=== PATIENT | female | born 1970 | race Caucasian/White ===

== ENCOUNTER 2019-07-08 14:49 | Emergency (ER) | payer BC ==
[~2019-07-08] VITALS: Ht 165.1 cm; Wt 71.1 kg
[2019-07-08 14:49] VITALS: BP 126/64
--- NOTE | 2019-07-08 15:13 | PHYS DOC ---
Past History Past Medical History: Cancer, Depression, Hypothyroid Past Surgical History: Cancer Surgery, Other Additional Past Surgical Histo: thyroidectomy Smoking: Cigarettes Alcohol Use: Occasionally Drug Use: None Adult General Chief Complaint Chief Complaint: HAND PROBLEM HPI HPI Patient is a 48-year-old female presents with a right hand injury. She states she fell and landed on her hand at work. She states the top of her hand is swollen and she's having trouble flexing her fingers. She denies any other injuries. She states the pain currently as a 9 out of 10 made worse with any movement.[] Review of Systems Review of Systems Constitutional: Denies fever or chills [] Eyes: Denies change in visual acuity, redness, or eye pain [] HENT: Denies nasal congestion or sore throat [] Respiratory: Denies cough or shortness of breath [] Cardiovascular: No additional information not addressed in HPI [] GI: Denies abdominal pain, nausea, vomiting, bloody stools or diarrhea [] : Denies dysuria or hematuria [] Musculoskeletal: Per history of present illness[] Integument: Denies rash or skin lesions [] Neurologic: Denies headache, focal weakness or sensory changes [] Endocrine: Denies polyuria or polydipsia [] All other systems were reviewed and found to be within normal limits, except as documented in this note. Allergies Allergies Allergies Coded Allergies Type Severity Reaction Last Updated Verified No Known Drug Allergies 06/02/14 No Physical Exam Physical Exam Constitutional: Well developed, well nourished, no acute distress, non-toxic ap pearance. [] HENT: Normocephalic, atraumatic, bilateral external ears normal, oropharynx moist, no oral exudates, nose normal. [] Eyes: PERRLA, EOMI, conjunctiva normal, no discharge. [] Neck: Normal range of motion, no tenderness, supple, no stridor. [] Cardiovascular:Heart rate regular rhythm, no murmur [] Lungs & Thorax: Bilateral breath sounds clear to auscultation [] Abdomen: Bowel sounds normal, soft, no tenderness, no masses, no pulsatile masses. [] Skin: Warm, dry, no erythema, no rash. [] Back: No tenderness, no CVA tenderness. [] Extremities: No tenderness, no cyanosis, no clubbing, ROM intact, no edema. [] Neurologic: Alert and oriented X 3, normal motor function, normal sensory function, no focal deficits noted. [] Psychologic: Affect normal, judgement normal, mood normal. [] Current Patient Data Vital Signs Vital Signs Date Time Temp Pulse Resp B/P (MAP) Pulse Ox O2 Delivery O2 Flow Rate FiO2 07/08/19 14:49 98.1 72 16 98 Room Air EKG EKG [] Radiology/Procedures Radiology/Procedures [] Course & Med Decision Making Course & Med Decision Making Pertinent Labs and Imaging studies reviewed. (See chart for details) [Right hand x-ray: Negative exam as interpreted by me] Dragon Disclaimer Dragon Disclaimer This electronic medical record was generated, in whole or in part, using a voice recognition dictation system. Departure Departure: Impression: Primary Impression: Contusion of right hand Disposition: 01 HOME/RESIDENCE PRIOR TO ADM Condition: STABLE Referrals: BRI STATON (PCP) Patient Instructions: Hand Contusion Scripts Naproxen (NAPROXEN) 500 Mg Tablet.dr 1 TAB PO Q12HR PRN for PAIN, #20 TAB 1 Refill Prov: MIRNA CORREA DO 07/08/19 Problem Qualifiers Primary Impression: Contusion of right hand Encounter type: initial encounter Qualified Codes: S60.221A - Contusion of right hand, initial encounter MIRNA CORREA DO Jul 08, 2019 15:13
[2019-07-08] MEDS ORDERED: NAPROXEN 500 MG TABLET PO ONE (15:15)
[2019-07-08] MEDS ORDERED: NAPR500T8 PO (15:37)
--- NOTE | 2019-07-08 16:23 | RAD ---
Exam: Right hand 3 views INDICATION: Injury TECHNIQUE: Frontal, lateral and oblique views of the right hand Comparisons: None FINDINGS: Bone mineralization is normal. No acute or healed fractures. Soft tissues are unremarkable. Joint spaces are well-maintained. IMPRESSION: No acute osseous abnormality. Electronically signed by: Yesy López MD (07/08/2019 4:20 PM) [facility]
== END 2019-07-08 15:50 | disposition home or self-care (01) ==
LOC: ER 14:49
DX: S60.221A Contusion of right hand, initial encounter (principal); E03.9 Hypothyroidism, unspecified; F17.210 Nicotine dependence, cigarettes, uncomplicated; W18.39XA Other fall on same level, initial encounter; Y93.89 Activity, other specified; Y92.89 Other specified places as the place of occurrence of the external cause; Y99.8 Other external cause status
CPT/HCPCS: 73130; 99284

== ENCOUNTER 2020-11-18 12:42 | Emergency (ER) | payer SELFPAY ==
[~2020-11-18] VITALS: Ht 165.1 cm; Wt 65.9 kg
[~2020-11-18 12:42] MED LIST: NAPR500T8 PO
[2020-11-18 12:47] VITALS: BP 158/82
--- NOTE | 2020-11-18 13:38 | PHYS DOC ---
Past History Past Medical History: Cancer, Depression, Hypothyroid Past Surgical History: Cancer Surgery, Other Additional Past Surgical Histo: thyroidectomy Smoking: Cigarettes Alcohol Use: Occasionally Drug Use: None General Adult EDM: Chief Complaint: LOWER EXTREMITY SWELLING HPI: HPI: Patient is a 50-year-old female who presents with complaints of all over swelling. Patient states that she feels like her hands, face, feet are swollen. "I feel like I am going to pop". Patient states that this happened one other time before and she was transferred to for hypocalcemia and had her thyroid removed. Patient states "I feel like my voice sounds hoarse". Patient denies trouble breathing, swallowing, shortness of breath. Denies pain. Reporting discomfort from swelling. Patient has history of thyroidectomy Review of Systems: Review of Systems: Constitutional: Denies fever or chills Eyes: Denies change in visual acuity HENT: Denies nasal congestion or sore throat Respiratory: Denies cough or shortness of breath Cardiovascular: Denies chest pain or edema GI: Denies abdominal pain, nausea, vomiting, bloody stools or diarrhea : Denies dysuria Musculoskeletal: Denies back pain or joint pain Integument: Denies rash Neurologic: Denies headache, focal weakness or sensory changes Endocrine: Denies polyuria or polydipsia Lymphatic: Denies swollen glands Psychiatric: Denies depression or anxiety Allergies: Allergies: Allergies Coded Allergies Type Severity Reaction Last Updated Verified No Known Drug Allergies 06/02/14 No Physical Exam: PE: Constitutional: Well developed, well nourished, no acute distress, non-toxic appearance. [] HENT: Normocephalic, atraumatic, bilateral external ears normal, oropharynx moist, no oral exudates, nose normal. [] Eyes: PERRLA, EOMI, conjunctiva normal, no discharge. [] Neck: Normal range of motion, no tenderness, supple, no stridor. [] Cardiovascular:Heart rate regular rhythm, no murmur [] Lungs & Thorax: Bilateral breath sounds clear to auscultation [] Abdomen: Bowel sounds normal, soft, no tenderness, no masses, no pulsatile masses. [] Skin: Warm, dry, no erythema, no rash. [] Back: No tenderness, no CVA tenderness. [] Extremities: No tenderness, lower leg, hand swelling Neurologic: Alert and oriented X 3, normal motor function, normal sensory function, no focal deficits noted. [] Psychologic: Affect normal, judgement normal, mood normal. [] Current Patient Data: Vital Signs: Vital Signs Date Time Temp Pulse Resp B/P (MAP) Pulse Ox O2 Delivery O2 Flow Rate FiO2 11/18/20 12:47 97.9 81 16 158/82 (107) 98 EKG: EKG: [] Radiology/Procedures: Radiology/Procedures: []EXAM: Chest, single view. HISTORY: Extremity swelling. COMPARISON: 03/12/2016 FINDINGS: A frontal view of the chest is obtained. There is no infiltrate, pleural effusion or pneumothorax. The heart is normal in size. There are healed rib fractures. There is cervical spinal fusion instrumentation. IMPRESSION: No acute pulmonary finding. Electronically signed by: Leydi Ramos MD (11/18/2020 1:59 PM) [id number] Heart Score: C/O Chest Pain: No Risk Factors: Risk Factors: DM, Current or recent (<one month) smoker, HTN, HLP, family history of CAD, obesity. Risk Scores: Score 0 - 3: 2.5% MACE over next 6 weeks - Discharge Home Score 4 - 6: 20.3% MACE over next 6 weeks - Admit for Clinical Observation Score 7 - 10: 72.7% MACE over next 6 weeks - Early Invasive Strategies Course & Med Decision Making: Course & Med Decision Making Pertinent Labs and Imaging studies reviewed. (See chart for details) [] Potassium is low at 2.9. 40 mEq of potassium given p.o. Calcium slightly decreased. Patient needs to follow-up with her PCP to have thyroid medication adjusted. UA negative for infection. Chest x-ray is negative for acute abnormalities. Patient is to return to emergency room with worsening symptoms or concerns. Patient is hemodynamically stable and able to ambulate on her own out of the emergency room. Dragon Disclaimer: [email or web address] Disclaimer: This electronic medical record was generated, in whole or in part, using a voice recognition dictation system. Departure Departure: Impression: Primary Impression: Hypokalemia Additional Impression: Hypocalcemia Disposition: 01 DC HOME SELF CARE/HOMELESS Condition: STABLE Referrals: BRI STATON (PCP) Patient Instructions: Hypokalemia-Brief Additional Instructions: Please follow up with your PCP regarding your thyroid levels and mangement of medication. Your Potassium was decreased. Please return to the ED with worsening symptoms or concerns. EMERGENCY DEPARTMENT GENERAL DISCHARGE INSTRUCTIONS Thank you for coming to [facility] (ED) today and trusting us with you care. We trust that you had a positivie experience in our Emergency Department. If you wish to speak to the department management, you may call the director at [phone]. YOUR FOLLOW UP INSTRUCTIONS ARE FOLLOWS: 1. Do you have a private Doctor? If you do not have a private doctor, please ask for a resource list of physicians or clinics that may be able to assist you with follow up care. 2. The Emergency Physician has interpreted your x-rays. The X-Ray specialist will also review them. If there is a change in the findings, you will be notified in 48 hours when at all possible. 3. A lab test or culture has been done, your results will be reviewed and you will be notified if you need a change in treatment. ADDITIONAL INSTRUCTIONS AND INFORMATION: 1. Your care today has been supervised by a physician who is specially trained in emergency care. Many problems require more than one evaluation for a complete diagnosis and treatment. We recommend that you schedule your follow up appointment as recommended to ensure complete treatment of you illness or injury. If you are unable to obtain follow up care and continue to have a problem, or if your condition worsens, we recommend that you return to the ED. 2. We are not able to safely determine your condition over the phone nor are we able to give sound medical advice over the phone. For these safety reasons, if you call for medical advice we will ask you to come to the ED for further evaluation. 3. If you have any questions regarding these discharge instructions please call the ED at [phone]. SAFETY INFORMATION: In the interest of safety, wellness, and injury prevention; we encourage you to wear your sealbelt, if you smoke; quite smoking, and we encourage family to use a protective helmet for bicycling and other sporting events that present an increased risk for head injury. IF YOUR SYMPTOMS WORSEN OR NEW SYMPTOMS DEVELOP, OR YOU HAVE CONCERNS ABOUT YOUR CONDITION; OR IF YOUR CONDITION WORSENS WHILE YOU ARE WAITING FOR YOUR FOLLOW UP APPOINTMENT; EITHER CONTACT YOUR PRIMARY CARE DOCTOR, THE PHYSICIAN WHOSE NAME AND NUMBER YOU WERE GIVEN, OR RETURN TO THE ED IMMEDIATELY. Scripts Levothyroxine Sodium (LEVOTHYROXINE SODIUM) 125 Mcg Tablet 1 TAB PO DAILY for hypothyroid, #30 TAB 0 Refills Prov: SUPA CURRY APRN 11/18/20 SUPA CURRY APRN Nov 18, 2020 13:38
--- NOTE | 2020-11-18 14:01 | RAD ---
EXAM: Chest, single view. HISTORY: Extremity swelling. COMPARISON: 03/12/2016 FINDINGS: A frontal view of the chest is obtained. There is no infiltrate, pleural effusion or pneumo thorax. The heart is normal in size. There are healed rib fractures. There is cervical spinal fusion instrumentation. IMPRESSION: No acute pulmonary finding. Electronically signed by: Leydi Ramos MD (11/18/2020 1:59 PM) [email or web address]
--- NOTE | 2020-11-18 14:02 | EKG ---
[address] [address] Test Date: 2020-11-18 Test Time: 13:52:27 Pat Name: TATIANNA LUO Department: Room: Gender: F [employer]ing [employer]inder: CALLY : 1970 Requested By: SUPA CURRY Order Number: [id number] Reading MD: Measurements Intervals [place] Rate: 67 P: 76 AR: 160 QRS: 54 QRSD: 78 T: 116 QT: 508 QTc: 540 Interpretive Statements SINUS RHYTHM LOW LIMB LEAD VOLTAGE ST ABNORMALITY, POSSIBLE INFERIOR SUBENDOCARDIAL INJURY PROLONGED QT ABNORMAL ECG RI6.02 No previous ECG available for comparison
[2020-11-18 14:15] LABS: BASO # 0.1 x10^3/uL (0.0-0.2); BASO % 2 % (0-3); EOS # 0.1 x10^3/uL (0.0-0.7); EOS % 2 % (0-3); HEMATOCRIT 32.3 % (36.0-47.0); HEMOGLOBIN 10.7 g/dL (12.0-15.5); LYMPH # 1.2 x10^3/uL (1.0-4.8); LYMPH % 30 % (24-48); MEAN CORPUSCULAR HEMOGLOBIN 29 pg (25-35); MEAN CORPUSCULAR HGB CONC 33 g/dL (31-37); MEAN CORPUSCULAR VOLUME 86 fL (79-100); MONO # 0.3 x10^3/uL (0.0-1.1); MONO % 7 % (0-9); NEUT # 2.3 x10^3uL (1.8-7.7); NEUT % 59 % (31-73); PLATELET COUNT 251 x10^3/uL (140-400); RED BLOOD COUNT 3.76 x10^6/uL (3.50-5.40); RED CELL DISTRIBUTION WIDTH 21.4 % (11.5-14.5); WHITE BLOOD COUNT 3.9 x10^3/uL (4.0-11.0)
[2020-11-18 14:31] LABS: ALBUMIN 3.4 g/dL (3.4-5.0); ALBUMIN/GLOBULIN RATIO 0.9 (1.0-1.7); CALCIUM 7.5 mg/dL (8.5-10.1); CREATININE 1.8 mg/dL (0.6-1.0); GFR 29.8; TOTAL BILIRUBIN 0.3 mg/dL (0.2-1.0)
[2020-11-18 14:35] LABS: POTASSIUM 2.9 mmol/L (3.5-5.1)
[2020-11-18] MEDS ORDERED: POTASSIUM CHLORIDE 20 MEQ TABLET.ER. PO ONE (15:15)
[2020-11-18] MEDS ORDERED: LEVO125T5 PO (17:04)
[2020-11-18 17:36] LABS: BARBITURATES NEG (NEG); BENZODIAZEPINES NEG (NEG); CANNABINOIDS NEG (NEG); COCAINE NEG (NEG); METHADONE NEG (NEG); OPIATES NEG (NEG); PHENCYCLIDINE NEG (NEG)
[2020-11-18 17:37] LABS: AMPHETAMINE/METHAMPHETAMINE POS (NEG)
[2020-11-18 17:52] LABS: BACTERIA,URINE MOD /HPF (0-FEW); BILIRUBIN,URINE NEG (NEG); CLARITY,URINE CLOUDY; COLOR,URINE YELLOW; GLUCOSE,URINE NEG (NEG); NITRITE,URINE POS (NEG); RBC,URINE 0 /HPF (0-2); SQUAMOUS EPITHELIAL CELL,UR MOD /LPF; UROBILINOGEN,URINE 0.2 mg/dL (0.2 mg/dL); WBC,URINE >40 /HPF (0-4)
[2020-11-18 19:43] LABS: ANISOCYTOSIS SLIGHT
[2020-11-18 19:44] LABS: PLT ESTIMATE ADEQUATE (ADEQUATE)
[2020-11-19 15:04] LABS: FREE T4 0.11 ng/dL (0.76-1.46); THYROID STIM HORMONE (TSH) 160.96 uIU/mL (0.358-3.740)
== END 2020-11-18 17:09 | disposition home or self-care (01) ==
LOC: ER 12:42
DX: E87.6 Hypokalemia (principal); E83.51 Hypocalcemia; E03.9 Hypothyroidism, unspecified; F17.210 Nicotine dependence, cigarettes, uncomplicated
CPT/HCPCS: 36415; 71045; 80053; 80307; 81001; 83735; 84439; 84443; 84481; 85025; 87086; 93005; 99285-25

== ENCOUNTER 2021-03-06 14:59 | Emergency (ER) | payer SELFPAY ==
[~2021-03-06] VITALS: Ht 165.1 cm; Wt 65.8 kg
[~2021-03-06 14:59] MED LIST changes: +LEVO125T5 PO
[2021-03-06] MEDS ORDERED: IV NORMAL SALINE 1,000ML 1,000 ML IV ONE (15:45)
[2021-03-06] MEDS ORDERED: ONDANSETRON PF 4 MG/2 ML VIAL. IVP ONE (15:45)
[2021-03-06 15:51] LABS: BASO # 0.1 x10^3/uL (0.0-0.2); BASO % 2 % (0-3); EOS # 0.1 x10^3/uL (0.0-0.7); EOS % 1 % (0-3); HEMATOCRIT 35.4 % (36.0-47.0); HEMOGLOBIN 11.9 g/dL (12.0-15.5); LYMPH % 35 % (24-48); MEAN CORPUSCULAR HEMOGLOBIN 28 pg (25-35); MEAN CORPUSCULAR HGB CONC 34 g/dL (31-37); MEAN CORPUSCULAR VOLUME 82 fL (79-100); MONO # 0.4 x10^3/uL (0.0-1.1); MONO % 6 % (0-9); NEUT # 3.3 x10^3uL (1.8-7.7); NEUT % 56 % (31-73); PLATELET COUNT 227 x10^3/uL (140-400); RED CELL DISTRIBUTION WIDTH 22.5 % (11.5-14.5); WHITE BLOOD COUNT 5.9 x10^3/uL (4.0-11.0)
[2021-03-06 15:52] LABS: CALCIUM 7.4 mg/dL (8.5-10.1); CREATININE 1.6 mg/dL (0.6-1.0); GFR 34.1; POTASSIUM 4.4 mmol/L (3.5-5.1)
[2021-03-06 15:58] LABS: ALBUMIN/GLOBULIN RATIO 0.9 (1.0-1.7); MAGNESIUM 2.6 mg/dL (1.8-2.4); TOTAL BILIRUBIN 0.5 mg/dL (0.2-1.0); TOTAL PROTEIN 8.3 g/dL (6.4-8.2)
[2021-03-06 16:53] LABS: ANISOCYTOSIS MOD; PLT ESTIMATE ADEQUATE (ADEQUATE)
--- NOTE | 2021-03-06 17:22 | PHYS DOC ---
Past History Past Medical History: Cancer, Depression, Hypothyroid Additional Past Medical Histor: Patient had thyroidectomy Past Surgical History: Cancer Surgery, Cholecystectomy, Other Additional Past Surgical Histo: thyroidectomy Smoking: Cigarettes Alcohol Use: Heavy Additional Alcohol Information: 2 shots daily Drug Use: None General Adult EDM: Chief Complaint: NAUSEA/VOMITING/DIARRHEA HPI: HPI: Patient is a 50-year-old female who presents with nausea and vomiting. Is taking anything for nausea. Patient states "I have been out of my thyroid medication for 3 months and I felt like my neck feels full and painful". Patient denies issues with swallowing, or shortness of breath. Patient is afebrile and denies recent illness. Patient has a history of hypothyroid and thyroidectomy. Review of Systems: Review of Systems: Constitutional: Denies fever or chills Eyes: Denies change in visual acuity HENT: Denies nasal congestion or sore throat Respiratory: Denies cough or shortness of breath Cardiovascular: Denies chest pain or edema GI: Denies abdominal pain. Reports nausea, vomiting, bloody stools or diarrhea : Denies dysuria Musculoskeletal: Denies back pain or joint pain Integument: Denies rash Neurologic: Denies headache, focal weakness or sensory changes Endocrine: Denies polyuria or polydipsia Lymphatic: Denies swollen glands Psychiatric: Denies depression or anxiety Current Medications: Current Meds: Current Medications Medications (Trade) Dose Ordered Sig/Mery Start Time Stop Time Status Last Admin Dose Admin Ondansetron HCl (Zofran) 4 mg 1X ONCE 03/06/21 15:45 03/06/21 16:07 DC 03/06/21 16:01 4 MG Sodium Chloride 1,000 ml @ 1,000 mls/hr 1X ONCE 03/06/21 15:45 03/06/21 16:44 DC 03/06/21 16:01 1,000 MLS/HR Allergies: Allergies: Allergies Coded Allergies Type Severity Reaction Last Updated Verified No Known Drug Allergies 03/06/21 No Physical Exam: PE: Constitutional: Well developed, well nourished, no acute distress, non-toxic appearance. [] HENT: Normocephalic, atraumatic, bilateral external ears normal, oropharynx moist, no oral exudates, nose normal. [] Eyes: PERRLA, EOMI, conjunctiva normal, no discharge. [] Neck: Normal range of motion, no tenderness, supple, no stridor. [] Cardiovascular:Heart rate regular rhythm, no murmur [] Lungs & Thorax: Bilateral breath sounds clear to auscultation [] Abdomen: Bowel sounds normal, soft, no tenderness, no masses, no pulsatile masses. [] Skin: Warm, dry, no erythema, no rash. [] Back: No tenderness, no CVA tenderness. [] Extremities: No tenderness, no cyanosis, no clubbing, ROM intact, no edema. [] Neurologic: Alert and oriented X 3, normal motor function, normal sensory function, no focal deficits noted. [] Psychologic: Affect normal, judgement normal, mood normal. [] Current Patient Data: Labs: Laboratory Tests Test 03/06/21 15:25 White Blood Count 5.9 x10^3/uL (4.0-11.0) Red Blood Count 4.30 x10^6/uL (3.50-5.40) Hemoglobin 11.9 g/dL (12.0-15.5) L Hematocrit 35.4 % (36.0-47.0) L Mean Corpuscular Volume 82 fL (79-100) Mean Corpuscular Hemoglobin 28 pg (25-35) Mean Corpuscular Hemoglobin Concent 34 g/dL (31-37) Red Cell Distribution Width 22.5 % (11.5-14.5) H Platelet Count 227 x10^3/uL (140-400) Neutrophils (%) (Auto) 56 % (31-73) Lymphocytes (%) (Auto) 35 % (24-48) Monocytes (%) (Auto) 6 % (0-9) Eosinophils (%) (Auto) 1 % (0-3) Basophils (%) (Auto) 2 % (0-3) Neutrophils # (Auto) 3.3 x10^3uL (1.8-7.7) Lymphocytes # (Auto) 2.0 x10^3/uL (1.0-4.8) Monocytes # (Auto) 0.4 x10^3/uL (0.0-1.1) Eosinophils # (Auto) 0.1 x10^3/uL (0.0-0.7) Basophils # (Auto) 0.1 x10^3/uL (0.0-0.2) Platelet Estimate Adequate (ADEQUATE) Anisocytosis Mod Sodium Level 137 mmol/L (136-145) Potassium Level 4.4 mmol/L (3.5-5.1) Chloride Level 96 mmol/L (98-107) L Carbon Dioxide Level 29 mmol/L (21-32) Anion Gap 12 (6-14) Blood Urea Nitrogen 12 mg/dL (7-20) Creatinine 1.6 mg/dL (0.6-1.0) H Estimated GFR (Cockcroft-Gault) 34.1 BUN/Creatinine Ratio 8 (6-20) Glucose Level 110 mg/dL (70-99) H Calcium Level 7.4 mg/dL (8.5-10.1) L Magnesium Level 2.6 mg/dL (1.8-2.4) H Total Bilirubin 0.5 mg/dL (0.2-1.0) Aspartate Amino Transferase (AST) 103 U/L (15-37) H Alanine Aminotransferase (ALT) 43 U/L (14-59) Alkaline Phosphatase 115 U/L (46-116) Total Protein 8.3 g/dL (6.4-8.2) H Albumin 4.0 g/dL (3.4-5.0) Albumin/Globulin Ratio 0.9 (1.0-1.7) L Vital Signs: Vital Signs Date Time Temp Pulse Resp B/P (MAP) Pulse Ox O2 Delivery O2 Flow Rate FiO2 03/06/21 15:05 97.5 71 14 144/78 100 EKG: EKG: [] Radiology/Procedures: Radiology/Procedures: [] Heart Score: C/O Chest Pain: No Risk Factors: Risk Factors: DM, Current or recent (<one month) smoker, HTN, HLP, family history of CAD, obesity. Risk Scores: Score 0 - 3: 2.5% MACE over next 6 weeks - Discharge Home Score 4 - 6: 20.3% MACE over next 6 weeks - Admit for Clinical Observation Score 7 - 10: 72.7% MACE over next 6 weeks - Early Invasive Strategies Course & Med Decision Making: Course & Med Decision Making Pertinent Labs and Imaging studies reviewed. (See chart for details) [] 50-year-old female presents with nausea and vomiting. Patient denies recent illness or exposure. Denies abdominal pain. Patient states that she has been out of her thyroid medication for 3 months and has been having fullness and pain to her neck. Patient states that she takes levothyroxine, 125mcg. Patient was given dose of levothyroxine while in the emergency room and also 4 mg of Zofran. Creatinine 1.6 which is consistent with patient's trend. All other labs unr emarkable. Patient reports symptoms have improved. Sending patient home with prescription for Zofran and also levothyroxine. Patient states that she has an appointment with PCP on the of this month. Patient given a prescription for 15 days until she can follow-up with PCP. Instructed patient to call PCP to see if she can get an appointment sooner. Patient states that she understands discharge plan and is appreciative. Strict return precautions given. Patient is hemodynamically stable able to ambulate on her own. Dragon Disclaimer: Dragon Disclaimer: This electronic medical record was generated, in whole or in part, using a voice recognition dictation system. Departure Departure: Impression: Primary Impression: Hypothyroidism Qualified Codes: E03.8 - Other specified hypothyroidism Additional Impression: Nausea & vomiting Qualified Codes: R11.2 - Nausea with vomiting, unspecified Disposition: HOME / SELF CARE / HOMELESS Condition: STABLE Referrals: EVANGELINA TSATON (PCP) Patient Instructions: Nausea and Vomiting, [id number] Additional Instructions: You are seen in the emergency room for nausea and vomiting. You were given Zofran in the emergency room which improved your symptoms. You stated you are out of your levothyroxine. You were given one dose in the emergency room and sent home with a prescription. Please call Evangelina and set up an appointment for an earlier date if possible. I have written you a prescription for levothyroxine for 15 days. Please return the emergency room if you have worsening symptoms or concerns. EMERGENCY DEPARTMENT GENERAL DISCHARGE INSTRUCTIONS Thank you for coming to [facility] (ED) today and trusting us with you care. We trust that you had a positivie experience in our Emergency Department. If you wish to speak to the department management, you may call the director at [phone]. YOUR FOLLOW UP INSTRUCTIONS ARE FOLLOWS: 1. Do you have a private Doctor? If you do not have a private doctor, please ask for a resource list of physicians or clinics that may be able to assist you with follow up care. 2. The Emergency Physician has interpreted your x-rays. The X-Ray specialist will also review them. If there is a change in the findings, you will be notified in 48 hours when at all possible. 3. A lab test or culture has been done, your results will be reviewed and you will be notified if you need a change in treatment. ADDITIONAL INSTRUCTIONS AND INFORMATION: 1. Your care today has been supervised by a physician who is specially trained in emergency care. Many problems require more than one evaluation for a complete diagnosis and treatment. We recommend that you schedule your follow up appointment as recommended to ensure complete treatment of you illness or injury. If you are unable to obtain follow up care and continue to have a problem, or if your condition worsens, we recommend that you return to the ED. 2. We are not able to safely determine your condition over the phone nor are we able to give sound medical advice over the phone. For these safety reasons, if you call for medical advice we will ask you to come to the ED for further evaluation. 3. If you have any questions regarding these discharge instructions please call the ED at [phone]. SAFETY INFORMATION: In the interest of safety, wellness, and injury prevention; we encourage you to wear your sealbelt, if you smoke; quite smoking, and we encourage family to use a protective helmet for bicycling and other sporting events that present an increased risk for head injury. IF YOUR SYMPTOMS WORSEN OR NEW SYMPTOMS DEVELOP, OR YOU HAVE CONCERNS ABOUT YOUR CONDITION; OR IF YOUR CONDITION WORSENS WHILE YOU ARE WAITING FOR YOUR FOLLOW UP APPOINTMENT; EITHER CONTACT YOUR PRIMARY CARE DOCTOR, THE PHYSICIAN WHOSE NAME AND NUMBER YOU WERE GIVEN, OR RETURN TO THE ED IMMEDIATELY. Scripts Ondansetron Hcl (ZOFRAN) 4 Mg Tablet 4 MG PO TID PRN PRN for NAUSEA, #9 TAB Prov: SUPA CURRY APRN 03/06/21 Levothyroxine Sodium (LEVOTHYROXINE SODIUM) 125 Mcg Tablet 1 TAB PO DAILY for hypothyroidism for 15 Days, #15 TAB 5 Refills Prov: SUPA CURRY APRN 03/06/21 SUPA CURRY APRN Mar 06, 2021 17:22
[2021-03-06] MEDS ORDERED: LEVO125T5 PO (17:32)
[2021-03-06] MEDS ORDERED: ONDA4TAB7 PO (17:33)
[2021-03-06 17:45] VITALS: BP 148/90
[2021-03-06] MEDS ORDERED: LEVOTHYROXINE 125 MCG TABLET PO ONE (17:45)
[2021-03-06 18:20] LABS: BACTERIA,URINE 0 /HPF (0-FEW); BILIRUBIN,URINE NEG (NEG); CLARITY,URINE CLEAR; COLOR,URINE STRAW; GLUCOSE,URINE NEG (NEG); NITRITE,URINE NEG (NEG); RBC,URINE 0 /HPF (0-2); SQUAMOUS EPITHELIAL CELL,UR FEW /LPF; UROBILINOGEN,URINE 0.2 mg/dL (0.2 mg/dL); WBC,URINE 0 /HPF (0-4)
--- NOTE | 2021-03-07 01:17 | EKG ---
[facility] [address] [place] [address] Test Date: 2021-03-06 Test Time: 15:56:14 Pat Name: TATIANNA LUO Department: Room: Gender: F Clinical Documentation Spec: NEVA : 1970 Requested By: SUPA CURRY Order Number: [id number] Reading MD: Measurements Intervals [place] Rate: 60 P: 90 ND: 168 QRS: 73 QRSD: 84 T: 59 QT: 548 QTc: 548 Interpretive Statements SINUS RHYTHM LOW LIMB LEAD VOLTAGE ST & T ABNORMALITY, CONSIDER LATERAL ISCHEMIA OR LEFT VENTRICULAR STRAIN T ABNORMALITY IN ANTEROSEPTAL LEADS ABNORMAL ECG RI6.02 No previous ECG available for comparison
== END 2021-03-06 17:55 | disposition home or self-care (01) ==
LOC: ER 14:59
DX: E03.8 Other specified hypothyroidism (principal); R11.2 Nausea with vomiting, unspecified; E03.9 Hypothyroidism, unspecified; F17.210 Nicotine dependence, cigarettes, uncomplicated; F10.20 Alcohol dependence, uncomplicated; Y90.9 Presence of alcohol in blood, level not specified
CPT/HCPCS: 36415; 80053; 81001; 83735; 84443; 85025; 93005; 96374; 99284; J2405; J7030

== ENCOUNTER → 2021-07-08 | Outpatient (CLI) | payer OTHER ==
[~2021-07-08] MED LIST changes: +ONDA4TAB7 PO
--- NOTE | 2021-07-08 09:27 | RAD ---
EXAM: Lumbar spine, 3 views. HISTORY: Pain. COMPARISON: None. FINDINGS: 3 views of the lumbar spine are obtained. There is mild retrolisthesis of L2 on L3 and L3 o n L4. There is mild multilevel endplate remodeling. There is facet arthropathy at the lower lumbar le vels. There are incidental cholecystectomy clips. There is a clip within the left hemipelvis. IMPRESSION: Multiple level degenerative change, primarily the lower lumbar levels. No acute osseous f inding. Electronically signed by: Leydi Ramos MD (07/08/2021 9:24 AM) [id number]
== END ==
LOC: RAD 09:01
PROVIDERS: ATTEND Anesthesiology Pain Medicine
DX: M47.816 Spondylosis without myelopathy or radiculopathy, lumbar region (principal); Z02.71 Encounter for disability determination
CPT/HCPCS: 72100